=== PATIENT | female | born 1960 | race Caucasian/White ===

== ENCOUNTER → 2017-11-15 12:24 | Outpatient (CLI) | payer OTHER, SELFPAY ==
[2017-11-15 13:52] LABS: Amphetamine Urine VISTA NEGATIVE (<1000 ng/mL); Barbiturate Urine VISTA NEGATIVE (< 200 ng/mL); Benzodiazepine Urine VISTA POSITIVE (< 200 ng/mL); Cocaine Urine VISTA NEGATIVE (< 300 ng/mL); Ecstacy Urine VISTA POSITIVE (< 500 ng/mL); Methadone Urine VISTA NEGATIVE (< 300 ng/mL); PCP Urine VISTA NEGATIVE (< 25 ng/mL); THC Urine VISTA NEGATIVE (< 50 ng/mL); Vista UDS pH Range 6
== END ==
PROVIDERS: Family Provider Family Medicine; PCP Family Medicine; Visit Provider Anesthesiology Pain Medicine
DX: F11.20 Opioid dependence, uncomplicated (principal)
CPT/HCPCS: 80307

== ENCOUNTER → 2018-02-12 14:25 | Outpatient (CLI) | payer OTHER, SELFPAY ==
--- NOTE | 2018-02-12 14:29 | RAD_ITS ---
STUDY: X-RAY - LUMBAR SPINE REASON FOR EXAM: Female, 57 years old. Pain. TECHNIQUE: 4 view(s) of the lumbar spine were obtained. COMPARISON: None FINDINGS: Normal lumbar lordosis. There is no substantial scoliosis. There is a normal alignment of the vertebrae. There is endplate spondylosis and disc space narrowing most marked at L5-S1. There is maintenance of normal alignment. There is no change in alignment with flexion or extension. There is no evidence of acute fracture or loss of vertebral axial height. The soft tissue structures are unremarkable. RAD/L/S Spine Min 4 Views IMPRESSION: Mild degenerative changes of the lumbar spine, most marked at L5-S1. Electronically Signed: Galen Mendoza DO at 18:04 EDT Tel [phone], Service support ,
== END ==
PROVIDERS: Family Provider Family Medicine; PCP Family Medicine; Visit Provider Orthopaedic Surgery
DX: M54.2 Cervicalgia (principal); M54.5 Low back pain
CPT/HCPCS: 72050; 72110

== ENCOUNTER → 2018-02-12 15:05 | Outpatient (CLI) | payer OTHER, SELFPAY ==
--- NOTE | 2018-02-12 15:05 | RAD_ITS ---
STUDY: X-RAY - CERVICAL SPINE REASON FOR EXAM: Female, 57 years old. Pain. TECHNIQUE: 5 view(s) of the cervical spine were obtained. COMPARISON: None FINDINGS: There are degenerative changes of the anterior atlantoaxial articulation. Normal odontoid process. There is straightening of the normal cervical lordosis. There is endplate spondylosis and disc space narrowing most marked at C5-6. There is no evidence of acute fracture or loss of vertebral axial height. There is neural foraminal narrowing on the right at C5-6. Minimal neural foraminal narrowing is seen on the left at C5-6 and C6-7. There is maintenance of normal alignment. The soft tissue structures are unremarkable. RAD/Cerv Spine 4 or 5 Views IMPRESSION: Straightening of the cervical lordosis with degenerative changes as above. Electronically Signed: Galen Mendoza DO at 18:12 EDT Tel [phone], Service support ,
== END ==
PROVIDERS: Family Provider Family Medicine; PCP Family Medicine; Visit Provider Orthopaedic Surgery
DX: M54.2 Cervicalgia (principal)
CPT/HCPCS: 72050

== ENCOUNTER 2018-03-07 17:01 | Outpatient (RCR) | payer OTHER, SELFPAY ==
--- NOTE | 2018-03-07 17:53 | HP.PTEVAL_ITS ---
Patient's Visit Information ANNIKA HENRY is a 57 year old F referred to Physical Therapy by Diandra Diaz with a diagnosis of Lumbar pain. Date of Evaluation: 03/07/18 Physical Therapist: Ramon Ojeda DPT, [place] - Visit Plan Frequency: 2x /Week Duration: 4 Weeks Plan: Pt not in alot of pain currently but has flare ups. 2x/week for 4 weeks for. NS education and postural, core, LE strength progressing to I in pool as exit strategy. Emphasize teaching for I. - Subjective Subjective: Has sciatic nerve pain whcih flares up every now and then and makes it hard to work. Has had it for years with insidious onset. Had MRI whcih shows some calcification and seeign DR. Palmer for over a year and the injections help for only a few days. Dr Diaz sent back for more injections in different spot. Will go through times where has no pain and then will have it for 6 months or so. Last flare was November of this year. pain is L buttock and LB and down leg to knee in the back. When she is flared up, walking and standing make her worse. Sitting is usually comfortable. Sleeping is OK right now. Keeps her up at night in a flare. 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 Sitting alot also. Basic ADLs are good now, but mopping and pushing are difficult in a flare. Hobbies: read and walks, enjoys gardening. Walked last night for a couple minutes. Has L numbness and tingly in flare btu not lately. - Pain L buttock Pain Intensity (Out of 10): 0 Pain Intensity Range: 0, 7 Comment: not since November. - Objective Walks I and transfers I, posture is hunched forward with some increased lordosis. Avoids L hip ext at end of stance phase. L/S ext painful centrally, flexion feels pulling in LB, SB are WFL. Tightness obvious in HS and quads and prirformis. Very tender to palpation in L piriformis and lowerglut. reflexes 2 /3 in patella and achilles today. sensation LE WNL to gross light touch. No symptoms recreated with movement today. - Goals Goal 1:: I approp waer based HEP to minimize future problems Goal Time Frame: 4-6 Weeks Goal 2:: Patient feel movement and pain are 75% improved overall. Goal Time Frame: 4-6 Weeks - Rehabilitation Potential Physical Therapy Diagnosis: Lumbar pain likely degenerative in nature. Not much current symptoms but needs education on posture and appropriate ex to minimize future problems. Rehabilitation Potential: Good - Anticipated Interventions Patient/Client Instruction: Educate patient on: Condition, Plan of Care For the Purpose of:: To decrease pain, To improve nutrient delivery to tissue, To improve muscle performance and motor function Therapeutic Exercise to Include: Strength training, Flexibilty training, In an aquatic setting, Active ROM, Dynamic Lumbar Stabilization For the Purpose of:: To decrease pain, To improve nutrient delivery to tissue, To increase oxygenation perfusion, To improve muscle performance and motor function, To increase tolerance to activity/condition/position, To improve ability of physical actions for home/community/work/leisure Thank you for the opportunity to evaluate your patient. For Medicare and Medicare HMO plans, please review the plan of care and approve it. It will need to be FAXED BACK to us at [phone] for Medicare purposes. Please let me know if there are questions or concerns regarding this plan of care. Physician Signature: Date:
--- NOTE | 2018-05-09 11:26 | HP.PT.NRP ---
HP - Discharge Summary (1) - Patient Information ANNIKA HENRY was seen in my office for initial evaluation on 03/07/18. The following Plan of Care was established for this patient: Initial Frequency: 2x /Week Initial Duration: 4 Weeks - Anticipated Interventions Patient/Client Instruction: Educate patient on: Condition, Plan of Care For the Purpose of:: To decrease pain, To improve nutrient delivery to tissue, To improve muscle performance and motor function Therapeutic Exercise to Include: Strength training, Flexibilty training, In an aquatic setting, Active ROM, Dynamic Lumbar Stabilization For the Purpose of:: To decrease pain, To improve nutrient delivery to tissue, To increase oxygenation perfusion, To improve muscle performance and motor function, To increase tolerance to activity/condition/position, To improve ability of physical actions for home/community/work/leisure This patient was last seen in our office 03/07/18. Pertinent comments regarding their Physical therapy will appear below: Pt seen one visit and POC established. Pt neglected to schedule or attend any of these visits. At this point it has been over two months and I will discontinue due to nonattendance. At this point I will be discontinuing this patient from physical therapy. I would be happy to see this patient again in the future if found appropriate by the physician. Thank you! Ramon Ojeda, DPT, [place]
== END 2018-03-07 19:00 | disposition home or self-care (01) ==
LOC: PT 17:01
PROVIDERS: Family Provider Family Medicine; PCP Family Medicine; Visit Provider Orthopaedic Surgery
DX: M53.3 Sacrococcygeal disorders, not elsewhere classified (principal); M54.5 Low back pain
CPT/HCPCS: 97162

== ENCOUNTER → 2019-03-25 13:09 | Outpatient (CLI) | payer BC, SELFPAY ==
[2019-03-25 12:42] VITALS: BMI 28.9
--- NOTE | 2019-03-25 13:10 | CT_ITS ---
STUDY: LOW DOSE CT LUNG CANCER SCREENING REASON FOR EXAM: Female, 58 years old. Current smoker. 35 pack-year history of tobacco use. Bilateral breast implants. RADIATION DOSAGE (If Supplied By Facility): CTDIvol = ( 3.02 ) mGy, DLP = ( 106.46 ) mGycm TECHNIQUE: No contrast was administered. Low dose technique was utilized (average mAS-38 and kVp 120). 1.25 mm axial source images with a slice interval of 1.25-mm were reconstructed in lung windows. 2.5 mm axial source images with a slice interval of 2.5-mm were reconstructed in lung windows. 5.0 mm axial source images with a slice interval of 5.0-mm were reconstructed in soft tissue windows. Nodule measured using lung windows on PACS and/or independent workstation with automated measurement of minimum and maximum diameter. Nodule measurement reported as average diameter rounded to the nearest whole number. Growth is defined as an increase ins size of greater than 1.5 mm. COMPARISON: None. Bilateral breast implants. NODULES: There is a 2 mm noncalcified nodule in the peripheral lateral aspect of the right middle lobe as seen on axial image #145. 2 mm noncalcified nodule which is pleural-based in the lateral aspect of the right upper lobe as seen in axial image #101. Total lung nodules (excluding granulomas): 2 Emphysema: Minimal emphysematous changes. Mild scarring in the right lower lobe. Endobronchial lesion: None Aorta: Unremarkable. Coronary arteries: Unremarkable. Mediastinal nodes: Small mediastinal lymph nodes. Other chest and abdominal findings: Degenerative changes of the thoracic spine. CT/Low Dose CT Lung Screening IMPRESSION: Lung-RADS category 2 - Continue annual screening with LDCT in 12 months. IMPORTANT NOTES FOR USE: ACR Lung-RADS Version 1.0 Assessment Categories Release Date: November 17, 2013 Category: Coded 0-4 bases on nodule(s) with highest degree of suspicion. Negative screen is defined as categories 1 and 2; a positive screen is defined as categories 3 and 4. Category 3 and 4A nodules that are unchanged on interval CT should be coded as category 2, and individuals returned to screening in 12 months. Category 4X: Category 3 or 4 nodules with additional imaging findings that increase the suspicion of lung cancer, such as spiculation, GGN that doubles in size in 1 year, enlarged lymph notes, etc. Category Modifiers: S (significant finding unrelated to lung cancer) and C (prior history of treated lung cancer) may be added to the 0-4 Lung-RADS Electronically Signed: Artem Chawla, at 13:51 EDT , Service support ,
== END ==
PROVIDERS: Family Provider Family Medicine; PCP Family Medicine; Referring Provider Nurse Practitioner Family; Visit Provider Nurse Practitioner Family
DX: Z12.2 Encounter for screening for malignant neoplasm of respiratory organs (principal); F17.209 Nicotine dependence, unspecified, with unspecified nicotine-induced disorders
CPT/HCPCS: G0297